=== PATIENT | male | born 1975 | race Caucasian/White ===

== ENCOUNTER → 2019-04-22 | Outpatient (CLI) | payer OTHER | LOC: CAT 09:32 | DX: Z13.6 Encounter for screening for cardiovascular disorders (principal); E78.00 Pure hypercholesterolemia, unspecified; I25.10 Atherosclerotic heart disease of native coronary artery without angina pectoris ==

== ENCOUNTER → 2019-05-26 | Outpatient (CLI) | payer OTHER | LOC: SJCVCIMAG 09:52 | DX: I10 Essential (primary) hypertension (principal); R06.09 Other forms of dyspnea; I71.2 Thoracic aortic aneurysm, without rupture; R00.1 Bradycardia, unspecified; Q23.1 Congenital insufficiency of aortic valve ==

== ENCOUNTER → 2020-02-22 | Outpatient (CLI) | payer OTHER | LOC: LAB 14:02 | PROVIDERS: ATTEND Family Medicine | DX: Z20.828 Contact with and (suspected) exposure to other viral communicable diseases (principal) ==

== ENCOUNTER → 2020-07-13 | Outpatient (CLI) | payer OTHER | LOC: CAT 12:32 | PROVIDERS: ATTEND Family Medicine | DX: M47.814 Spondylosis without myelopathy or radiculopathy, thoracic region (principal); R22.2 Localized swelling, mass and lump, trunk; I72.9 Aneurysm of unspecified site ==

== ENCOUNTER → 2020-09-10 | Outpatient (CLI) | payer OTHER | LOC: CAT 13:06 | PROVIDERS: ATTEND Family Medicine | DX: R22.2 Localized swelling, mass and lump, trunk (principal); M47.814 Spondylosis without myelopathy or radiculopathy, thoracic region; M48.04 Spinal stenosis, thoracic region; M25.78 Osteophyte, vertebrae ==